=== PATIENT | female | born 1995 | race Caucasian/White ===

== ENCOUNTER 2016-12-09 17:59 | Emergency (ER) | payer OTHER ==
[~2016-12-09] VITALS: Ht 152.4 cm; Wt 46.3 kg
[2016-12-09] MEDS ORDERED: SODIUM CHLORIDE FLUSH 10ML SYR IVF ONE (18:30)
[2016-12-09 18:53] LABS: HEMATOCRIT 40.9 % (34.6-47.8); HEMOGLOBIN 13.9 g/dL (11.7-16.4); WHITE BLOOD COUNT 8.7 x10^3/uL (4.5-13.2)
[2016-12-09 18:59] LABS: BLOOD UREA NITROGEN 13 mg/dL (7-18)
[2016-12-09 19:04] LABS: ASPARTATE AMINO TRANSFERASE 16 U/L (15-37)
[2016-12-09] MEDS ORDERED: FENTANYL PF 100 MCG/2ML IM ONE (19:30)
[2016-12-09] MEDS ORDERED: FENTANYL PF 100 MCG/2ML ONE (19:50)
[2016-12-09] MEDS ORDERED: DIAZEPAM 5 MG/ML, 2ML IV ONE (22:00)
[2016-12-09] MEDS ORDERED: DIAZEPAM 5 MG TABLET ONE (22:12)
[2016-12-09] MEDS ORDERED: DIAZEPAM 5 MG TABLET PO ONE (22:30)
[2016-12-09 22:46] VITALS: BP 119/72
== END 2016-12-09 23:50 | disposition home or self-care (01) ==
LOC: ED 20:03
DX: K59.00 Constipation, unspecified (principal); J45.909 Unspecified asthma, uncomplicated
CPT/HCPCS: 36415; 74020; 80053; 81003; 83690; 84703; 85025; 96372; 99285; J3010

== ENCOUNTER 2017-01-31 22:58 | Emergency (ER) | payer OTHER ==
[~2017-01-31] VITALS: Ht 152.4 cm; Wt 45.0 kg
[2017-01-31] MEDS ORDERED: LORazepam 2 MG/ML, 1ML ONE (23:27)
[2017-01-31] MEDS ORDERED: ONDANSETRON 2MG/ML, 2ML ONE (23:27)
[2017-02-01] MEDS ORDERED: LORazepam 2 MG/ML, 1ML IVPush ONE
[2017-02-01] MEDS ORDERED: ONDANSETRON 2MG/ML, 2ML IVPush ONE
[2017-02-01 00:20] VITALS: BP 128/70
== END 2017-02-01 00:22 | disposition home or self-care (01) ==
LOC: ED 23:59
DX: R10.13 Epigastric pain (principal); F41.1 Generalized anxiety disorder; J45.909 Unspecified asthma, uncomplicated
CPT/HCPCS: 96374; 96375; 99284; J2060; J2405